=== PATIENT | female | born 1965 | race Caucasian/White ===

== ENCOUNTER 2023-03-28 08:52 | Day surgery (SDC) | payer BC ==
[~2023-03-28 08:52] MED LIST: Albuterol 0.083% 2.5 MG/3 ML Neb Soln NEB PRN; Dexmedetomidine 200 MCG/2 ML SDV ONE; HYDROmorphone 1 MG/ML Syringe IVPUSH PRN; Lactated Ringers 1,000 ML IV SCH; Metoclopramide 10 MG/2 ML SDV IVPUSH PRN; Morphine 2 MG/ML SYRINGE IVPUSH PRN; Naloxone 0.4 MG/ML SDV IVPUSH PRN; Ondansetron 4 MG/2 ML SDV IVPUSH PRN; Sodium Chloride 0.9% 10 ML Syringe FLUSH PRN; Sodium Chloride 0.9% 2.5 ML Syringe FLUSH PRN; Sodium Chloride 0.9% 20 ML SDV IV PRN; droPERidol 5 MG/2 ML SDV IVPUSH PRN; fentaNYL 100 MCG/2 ML SDV ONE; fentaNYL 50 MCG/ML SDV IVPUSH PRN
[2023-03-28] MEDS ORDERED: Propofol 200 MG/20 ML SDV ONE (09:09)
[2023-03-28] MEDS ORDERED: Bupivacaine 0.5% 30 ML SDV ONE (09:34)
[2023-03-28] MEDS ORDERED: Lidocaine 2% 11 ML Jelly Filled Syringe ONE (09:47)
[2023-03-28] MEDS ORDERED: cefOXitin 1 GM Vial ONE (09:58)
[2023-03-28] MEDS ORDERED: Dexamethasone 4 MG/ML 5 ML MDV ONE (10:04)
[2023-03-28] MEDS ORDERED: Ondansetron 4 MG/2 ML SDV ONE (10:04)
[2023-03-28] MEDS ORDERED: Ketorolac 30 MG/ML SDV ONE (10:04)
[2023-03-28] MEDS ORDERED: Magnesium Sulfate (4.06 MEQ/ML) 5 GM/10 ML SDV ONE (10:09)
[2023-03-28] MEDS ORDERED: ePHEDrine 50 MG/ML SDV ONE (10:24)
[2023-03-28 12:39] VITALS: BP 147/85; PULSE 85
== END 2023-03-28 12:12 | disposition home or self-care (01) ==
LOC: MW.SDS 08:52
PROVIDERS: ATTEND Surgery
DX: Z12.11 Encounter for screening for malignant neoplasm of colon (principal); K64.3 Fourth degree hemorrhoids; K64.8 Other hemorrhoids; K57.30 Diverticulosis of large intestine without perforation or abscess without bleeding; E66.9 Obesity, unspecified; G47.00 Insomnia, unspecified; M54.30 Sciatica, unspecified side; Z90.89 Acquired absence of other organs; Z79.82 Long term (current) use of aspirin; Z79.899 Other long term (current) drug therapy; Z68.38 Body mass index [BMI] 38.0-38.9, adult
CPT/HCPCS: 45380; 46260; A9270; J0131; J0694; J1100; J1885; J2405; J2704; J3010; J3475; J3490; J7120; 00902